=== PATIENT | female | born 1980 | race Two or more races ===

== ENCOUNTER 2022-11-15 10:24 | Outpatient (CLI) | payer OTHER | END 2022-11-15 10:45 | disposition home or self-care (01) | LOC: MAMO-SONO 10:24 | PROVIDERS: ATTEND Obstetrics & Gynecology | DX: N60.12 Diffuse cystic mastopathy of left breast (principal); N60.11 Diffuse cystic mastopathy of right breast; R10.2 Pelvic and perineal pain ==

== ENCOUNTER 2024-06-24 08:19 | Outpatient (CLI) | payer OTHER | END 2024-06-24 08:34 | disposition home or self-care (01) | LOC: RAD 08:19 | PROVIDERS: ATTEND Obstetrics & Gynecology | DX: R10.2 Pelvic and perineal pain (principal); T83.32XA Displacement of intrauterine contraceptive device, initial encounter ==

== ENCOUNTER 2024-10-30 09:53 | Outpatient (CLI) | payer OTHER | END 2024-10-30 10:01 | disposition home or self-care (01) | LOC: MAMO-SONO 09:53 | PROVIDERS: ATTEND Obstetrics & Gynecology | DX: N60.11 Diffuse cystic mastopathy of right breast (principal); N60.12 Diffuse cystic mastopathy of left breast ==